=== PATIENT | male | born 1995 | race Caucasian/White ===

== ENCOUNTER 2019-12-25 17:44 | Emergency (ER) | payer SELFPAY ==
[~2019-12-25] VITALS: Ht 185.4 cm; Wt 100.4 kg
--- NOTE | 2019-12-25 18:57 | ED Cough/URI ---
General Chief Complaint: Abdominal/GI Problems Stated Complaint: COUGHING UP BLOOD Nursing Triage Note: Pt ambulatory to ED with c/o coughing up blood x3, just FRAUD EXAMINER to ED. Pt states the blood "looks like alot and really red. Dark red." Pt denies CP, SOB or ABD pain. Pt states it, "just scared me." Sepsis Screen: No Definite Risk History of Present Illness Date Seen by Provider: Dec 25, 2019 Time Seen by Provider: 18:30 Initial Comments Patient reports coughing up about a tablespoon of blood straining with some clots concerned that it is coming from his lungs concerned that related to his smoking and stress has had no fever no chills no chest pain or shortness of breath no previous episodes no other evidence of bruising no recent nosebleeding no recent ingestion of red foods. Timing/Duration: just prior to arrival Severity/Quality: mild Prior Episodes/Possible Cause: no prior episodes Associated Symptoms: other (denies chest pain denies fever denies chills denies previous cough does relate smoking one pack a day) Allergies and Home Medications Allergies Coded Allergies: No Known Drug Allergies (Unverified , 12/25/19) Patient Home Medication List Home Medication List Reviewed: Yes Review of Systems Review of Systems Constitutional: No chills, No dizziness, No fever EENTM: No ear pain, No blurred vision, No double vision, No epistaxis, No nose congestion, No throat pain Respiratory: No cough, No dyspnea on exertion; hemoptysis; No short of breath, No stridor, No wheezing Cardiovascular: No chest pain, No palpitations Gastrointestinal: No abdominal pain, No nausea, No vomiting Genitourinary: No dysuria, No frequency Musculoskeletal: No muscle pain, No muscle stiffness Skin: No lesions, No rash Hematologic/Lymphatic: Denies Easy Bleeding, Denies Easy Bruising Past Ixiixwh-Lgvymz-Nmfmzz Hx Past Med/Social Hx: Reviewed Nursing Past Med/Soc Hx Patient Social History Recent Foreign Travel: No Contact w/Someone Who Travel: No Recent Infectious Disease Expo: No Recent Hopitalizations: No Physical Abuse: No Sexual Abuse: No Mistreated: No Fear: No Seasonal Allergies Seasonal Allergies: No Past Medical History Surgeries: No Respiratory: No Cardiac: No Neurological: No Genitourinary: No Gastrointestinal: No Musculoskeletal: No Endocrine: No HEENT: No Cancer: No Psychosocial: No Integumentary: No Blood Disorders: No Adverse Reaction/Blood Tranf: No Physical Exam Vital Signs - First Documented 12/25/19 18:21 Temp 36.8 Pulse 114 Resp 18 B/P (MAP) 140/71 (94) Pulse Ox 96 O2 Delivery Room Air Capillary Refill : Less Than 3 Seconds Height: '" Weight: lbs. oz. kg; 29.00 BMI Method: General Appearance: WD/WN, no apparent distress Eyes: Bilateral Eye PERRL, Bilateral Eye EOMI HEENT: PERRL/EOMI, normal ENT inspection, TMs normal, pharynx normal Neck: non-tender, full range of motion Respiratory: chest non-tender, lungs clear, rhonchi, wheezing Cardiovascular: regular rate, rhythm, no edema Gastrointestinal: normal bowel sounds, non tender, soft Extremities: normal range of motion, normal inspection Neurologic/Psychiatric: no motor/sensory deficits, alert, normal mood/affect, oriented x 3 Skin: normal color, warm/dry Progress/Results/Core Measures Suspected Sepsis Recent Fever Within 48 Hours: No Infection Criteria Present: None New/Unexplained Altered Menta: No Sepsis Screen: No Definite Risk SIRS Temperature: Pulse: 114 Respiratory Rate: 18 Laboratory Tests 12/25/19 19:12: White Blood Count 11.3H Blood Pressure 140 /71 Mean: 94 Laboratory Tests 12/25/19 19:12: Creatinine 0.82, INR Comment 0.9, Platelet Count 245, Total Bilirubin 0.5 Results/Orders Lab Results Laboratory Tests Test 12/25/19 19:12 Range/Units White Blood Count 11.3 H 4.3-11.0 10^3/uL Red Blood Count 5.12 4.35-5.85 10^6/uL Hemoglobin 15.7 13.3-17.7 G/DL Hematocrit 44 40-54 % Mean Corpuscular Volume 85 80-99 FL Mean Corpuscular Hemoglobin 31 25-34 PG Mean Corpuscular Hemoglobin Concent 36 32-36 G/DL Red Cell Distribution Width 12.3 10.0-14.5 % Platelet Count 245 130-400 10^3/uL Mean Platelet Volume 9.2 7.4-10.4 FL Neutrophils (%) (Auto) 59 42-75 % Lymphocytes (%) (Auto) 27 12-44 % Monocytes (%) (Auto) 10 0-12 % Eosinophils (%) (Auto) 3 0-10 % Basophils (%) (Auto) 0 0-10 % Neutrophils # (Auto) 6.6 1.8-7.8 X 10^3 Lymphocytes # (Auto) 3.1 1.0-4.0 X 10^3 Monocytes # (Auto) 1.2 H 0.0-1.0 X 10^3 Eosinophils # (Auto) 0.3 0.0-0.3 10^3/uL Basophils # (Auto) 0.1 0.0-0.1 10^3/uL Prothrombin Time 12.6 12.2-14.7 SEC INR Comment 0.9 0.8-1.4 Activated Partial Thromboplast Time 28 24-35 SEC Sodium Level 138 135-145 MMOL/L Potassium Level 3.6 3.6-5.0 MMOL/L Chloride Level 102 98-107 MMOL/L Carbon Dioxide Level 22 21-32 MMOL/L Anion Gap 14 5-14 MMOL/L Blood Urea Nitrogen 11 7-18 MG/DL Creatinine 0.82 0.60-1.30 MG/DL Estimat Glomerular Filtration Rate > 60 BUN/Creatinine Ratio 13 Glucose Level 137 H 70-105 MG/DL Calcium Level 9.4 8.5-10.1 MG/DL Corrected Calcium 9.0 8.5-10.1 MG/DL Total Bilirubin 0.5 0.1-1.0 MG/DL Aspartate Amino Transf (AST/SGOT) 24 5-34 U/L Alanine Aminotransferase (ALT/SGPT) 43 0-55 U/L Alkaline Phosphatase 85 40-136 U/L Total Protein 7.1 6.4-8.2 GM/DL Albumin 4.5 3.2-4.5 GM/DL My Orders Orders - DAYANA MENDOZA JR, MD Cbc With Automated Diff (12/25/19 18:45) Comprehensive Metabolic Panel (12/25/19 18:45) Protime With Inr (12/25/19 18:45) Partial Thromboplastin Time (12/25/19 18:45) Chest 1 View Ap/Pa Only (12/25/19 18:45) Ct Chest W (12/25/19 19:50) Iohexol Injection (Omnipaque 350 Mg/Ml 1 (12/25/19 20:00) Received Contrast (Hold Metformin- Contr (12/25/19 20:00) Ns (Ivpb) (Sodium Chloride 0.9% Ivpb Bag (12/25/19 20:00) Medications Given in ED Current Medications Medications Dose Ordered Sig/Cecil Route Start Time Stop Time Status Last Admin Dose Admin Iohexol 100 ml ONCE ONCE IV 12/25/19 20:00 12/25/19 20:01 DC 12/25/19 20:06 75 ML Sodium Chloride 100 ml ONCE ONCE IV 12/25/19 20:00 12/25/19 20:01 DC 12/25/19 20:06 100 ML Vital Signs/I&O 12/25/19 18:21 Temp 36.8 Pulse 114 Resp 18 B/P (MAP) 140/71 (94) Pulse Ox 96 O2 Delivery Room Air Capillary Refill : Less Than 3 Seconds Blood Pressure Mean: 94 Departure Communication (Admissions) Discussed with patient about finding of x-ray and CAT scan at this point feel like this is probably not malignant fungal versus sarcoid as per the radiologist but at this point needs bronchoscopy with biopsy discussed with him and he will call in the morning for primary care follow-up and set up with a bronchoscopy. Return if any problems Impression Primary Impression: Hemoptysis Disposition: HOME, SELF-CARE Condition: Stable Departure-Patient Inst. Referrals: NICOLE MILLS MD Patient Instructions: Coughing up Blood DAYANA MENDOZA JR, MD Dec 25, 2019 18:56
[2019-12-25 19:19] LABS: HEMATOCRIT 44 % (40-54); HEMOGLOBIN 15.7 G/DL (13.3-17.7); LYMPHOCYTES % (AUTO) 27 % (12-44); MEAN CORPUSCULAR HEMOGLOBIN 31 PG (25-34); MEAN CORPUSCULAR HGB CONC 36 G/DL (32-36); MEAN CORPUSCULAR VOLUME 85 FL (80-99); MEAN PLATELET VOLUME 9.2 FL (7.4-10.4); MONOCYTES % (AUTO) 10 % (0-12); NEUTROPHILS % (AUTO) 59 % (42-75); PLATELET COUNT 245 10^3/uL (130-400); RED CELL DISTRIBUTION WIDTH 12.3 % (10.0-14.5); WHITE BLOOD COUNT 11.3 10^3/uL (4.3-11.0)
[2019-12-25 19:20] LABS: BASOPHILS # (AUTO) 0.1 10^3/uL (0.0-0.1); BASOPHILS % (AUTO) 0 % (0-10); EOSINOPHILS # (AUTO) 0.3 10^3/uL (0.0-0.3); EOSINOPHILS % (AUTO) 3 % (0-10); LYMPHOCYTES # (AUTO) 3.1 X 10^3 (1.0-4.0); MONOCYTES # (AUTO) 1.2 X 10^3 (0.0-1.0); NEUTROPHILS # (AUTO) 6.6 X 10^3 (1.8-7.8)
--- NOTE | 2019-12-25 19:33 | Diagnostic Imaging Report ---
INDICATION: Hemoptysis. FINDINGS: The heart size is normal. There is mild soft tissue prominence about the anthony bilaterally, right greater than left. There is no pleural effusion or pneumothorax. IMPRESSION: Questionable soft tissue prominence about the anthony bilaterally, right greater than left. Underlying adenopathy cannot be excluded. Recommend clinical correlation and, if warranted, followup with CT chest. No other acute cardiopulmonary abnormality. Dictated by: Dictated on workstation # [id number]
[2019-12-25 19:36] LABS: INR 0.9 (0.8-1.4); PROTHROMBIN TIME PATIENT 12.6 SEC (12.2-14.7)
[2019-12-25 19:38] LABS: ALANINE AMINOTRANSFERASE 43 U/L (0-55); ALKALINE PHOSPHATASE 85 U/L (40-136); BILIRUBIN,TOTAL 0.5 MG/DL (0.1-1.0); BUN/CREATININE RATIO 13; CALCIUM 9.4 MG/DL (8.5-10.1); CARBON DIOXIDE 22 MMOL/L (21-32); CHLORIDE 102 MMOL/L (98-107); CREATININE SERUM 0.82 MG/DL (0.60-1.30); GFR ESTIMATED > 60; GLUCOSE 137 MG/DL (70-105); POTASSIUM 3.6 MMOL/L (3.6-5.0); SODIUM 138 MMOL/L (135-145); TOTAL PROTEIN 7.1 GM/DL (6.4-8.2)
[2019-12-25 19:39] LABS: ALBUMIN 4.5 GM/DL (3.2-4.5)
[2019-12-25] MEDS ORDERED: IOHEXOL 350 MG/ML 100 ML (OMNIPAQUE 350) VIAL IV ONE (20:00)
[2019-12-25] MEDS ORDERED: NS 100 ML (IVPB) BAG IV ONE (20:00)
[2019-12-25] MEDS ORDERED: HOLD METFORMIN - RECEIVED CONTRAST 20 ML VIAL IV SCH (20:00)
--- NOTE | 2019-12-25 20:51 | Diagnostic Imaging Report ---
PROCEDURE: CT chest with contrast only. TECHNIQUE: Multiple contiguous axial images were obtained through the chest after administration of intravenous contrast. Auto Exposure Controls were utilized during the CT exam to meet ALARA standards for radiation dose reduction. INDICATION: Cough and hemoptysis. FINDINGS: There is bulky mediastinal and hilar adenopathy, right greater than left. Some of this demonstrates some benign type calcification. The largest pretracheal lymph node measures 1.6 cm. The conglomerate of nodes in the right hilum measures approximately 4.4 x 3 cm. There is a 2 cm subcarinal node. There is a 1.5 cm left hilar node. There are also some free aortic lymph nodes. The thoracic aorta is normal in caliber and without evidence of dissection. There is no pleural or pericardial fluid. There is pneumothorax. There is calcified granuloma in the right lower lobe. There is an additional 5 mm nodule along the fissure on the right. There is a more spiculated-appearing density in the right upper lobe measuring approximately 1 cm. The visualized intra-abdominal structures are otherwise unremarkable. The osseous structures are unremarkable. IMPRESSION: 1. Bulky mediastinal and hilar adenopathy, as described. There are some dystrophic calcifications within it suggesting a benign process although neoplasm certainly cannot be excluded. Recommend further evaluation with bronchoscopy and biopsy. 2. A 1 cm spiculated density in the right lung apex, likely inflammatory, although again neoplasm cannot be entirely excluded. Recommend short interval follow-up to ensure stability of approximately 2-3 months. Dictated by: Dictated on workstation # [id number]
[2019-12-25 20:54] VITALS: BP 138/78
--- OUTSIDE RECORDS SUMMARY | 2019-12-25 22:05 | XMS REPORT | Clinical Summary ---
Author Author Admin, Deven GAY Organization [facility] Address Unknown Phone Unavailable Allergies, Adverse Reactions, Alerts Allergy Name Reaction Description Start Date Severity Status Pr ovider No Known Allergies Jazmine Logan Conditions or Problems Problem Name Problem Code Onset Date Status Entry Date Provider Comment Standard Description Annotate WRIST PAIN, RIGHT 719.43 Resolved Lester Ortega MD Pain in joint involving forearm Shoulder pain, right 719.41 Active Lester jones MD Pain in joint involving shoulder region Spells 780.09 Active Lester Ortega MD Other alteration of consciousness ADHD 314.01 Active Lester Ortega MD Attention deficit disorder of childhood with hyperactivity Bipolar disorder 296.80 Active Lester Dumont Bipolar disorder, unspecified WRIST PAIN, RIGHT ICD-719.43 Inactive Lester Ortega MD Medication List Medication Instructions Start Date Stop Date Generic Name NDC Status Provider Patient Instruction LITHIUM CARBONATE ER 450 MG ORAL CR-TABS 1 twice a day LITHIUM CARBONATE 03264316434 Active Lester Ortega MD Active Vital Signs Date Name Value Unit Range Description blood pressure, diastolic - 8462-4 68 mm[Hg] BP mercado blood pressure, systolic - 8480-6 104 mm[Hg] BP sys pulse rate E&M - 8867-4 81 /min H eart rate temperature E&M 98.6 [degF] Body temp erature weight E&M - 3141-9 210.2 [lb_av] Weigh t Measured blood pressure, diastolic - 8462-4 74 mm[Hg] BP mercado blood pressure, systolic - 8480-6 106 mm[Hg] BP sys pulse rate E&M - 8867-4 76 /min H eart rate temperature E&M 98.3 [degF] Body temp erature weight E&M - 3141-9 203 [lb_av] Weigh t Measured blood pressure, diastolic - 8462-4 74 mm[Hg] BP mercado blood pressure, systolic - 8480-6 119 mm[Hg] BP sys pulse rate E&M - 8867-4 66 /min H eart rate temperature E&M 98.5 [degF] Body temp erature weight E&M - 3141-9 201.6 [lb_av] Weigh t Measured blood pressure, diastolic - 8462-4 72 mm[Hg] BP mercado blood pressure, systolic - 8480-6 110 mm[Hg] BP sys height E&M - 8302-2 71.5 [in_us] Bdy h eight pulse rate E&M - 8867-4 58 /min H eart rate temperature E&M 98.0 [degF] Body temp erature weight E&M - 3141-9 198.8 [lb_av] Weigh t Measured Encounters Code Encounter Date Provider Facility CPT-90553 Level 3 Est. Patient 12:51:59 CDT Lester Ortega MD [facility] CPT-37409 Level 3 Est. Patient 14:41:31 CDT Lester Ortega MD [facility] CPT-52357 Level 3 Est. Patient 11:17:43 CDT Lester Ortega MD [facility] CPT-52744 Level 3 Est. Patient 14:20:14 CDT Lester Ortega MD [facility] CPT-75305 Level 3 Est. Patient 10:53:18 CDT Gorge NIEVES [facility] Procedures Code Procedure Name Date Entry Date Standard Desc ription CPT-46771 Wrist comp 3V 15:35:51 CDT
--- OUTSIDE RECORDS SUMMARY | 2019-12-25 22:05 | XMS REPORT ---
Author Author [facility] Medic al StaffCLAIRE Organization [facility] Address [address] [id number] Phone [phone] Care Team Providers Care Baggage Handling Supervisor Name Role Phone JOSE CRUZ KOEHLER MD PP [phone] Summary purpose TRANSITION OF CARE AUTO GENERATION Chief Complaint and Reason for Visit No authorized Reason for Visit (Admitting Diagnosis) is available for this visit . Problem list No authorized problems tracked for continuity of care are available for this vis it. Encounters No authorized problems tracked for encounter diagnoses are available for this vi sit. Medications No medications recorded for this patient visit Allergies, adverse reactions, alerts Allergen Category Ingredient Status Reaction Severity Onset No known drug allergies No known drug allergies No known drug al lergies Confirmed or Verified Immunizations No immunizations recorded for this patient visit Relevant diagnostic tests and/or laboratory data No authorized results are available for this patient visit History of procedures Procedure Code Code Type Description Date Performed Performing Physician 75329 CPT-4 TDAP VACCINE 7 YRS/> IM 04-30-2015 ABIGAIL LORENZANA ELLEN 04186 CPT-4 EMERGENCY DEPT VISIT 04-30-2015 JASBIR ELLEN 95655 CPT-4 EMERGENCY DEPT VISIT 04-30-2015 JASBIR ELLEN 31840 CPT-4 IMMUNIZATION ADMIN 04-30-2015 JASBIR WE NDT Functional status Functional Status Finding Observation Time Abdomen Appearance flat 90-79-821360:30 Abdomen soft 10-68-471466:30 Bowel Sounds present 81-64-278369:30 Pappas no 01-86-561466:30 Urination normal 37-87-385822:30 Quality sym/unlabored :30 Cough absent 42-68-372775:30 Breath Sounds RUL clear 54-36-888484:30 Breath Sounds RML clear 30-60-891134:30 Breath Sounds RLL clear :30 Breath Sounds RISHI clear :30 Breath Sounds LLL clear 68-65-104856:30 Airway natural :30 Chest Tube no :30 Oxygen no :30 Temp >100.4 no : Temp <96.8 no :30 Chills with rigors no :30 HR > 90bpm yes :30 Respirations > 20 no : Systolic <90 no :30 headache stiff neck no :30 Rapid Resp no :43 Nursing Note Pt assessment completed at t his time and Pt was given tdap per dr order at this time Pt was then given home instrucitons at this time and was off of floor in stable conditon :36 Vital signs Type Value Date Respiration Rate 18breaths per minute : 30 Pulse 110beats per minute :3 0 Oxygen Saturation 99% :30 BP Systolic 115mmHg :30 BP Diastolic 60mmHg :30 Temperature 98F :30 Height 73inches :45 Weight 212.6LB :45 Social history Type Value Smoking Status CURRENT EVERY DAY SMOKER Treatment Plan No treatment plan text is available for this visit. Hospital discharge instructions Dismissal Condition good Disposition on DC home DC Inst/Educ Give yes PNE Vac none Flu Vac no Tetanus Vac unknown
--- OUTSIDE RECORDS SUMMARY | 2019-12-25 22:05 | XMS REPORT | Clinical Summary ---
Author Author Admin, Deven GAY Organization [facility] Address Unknown Phone Unavailable Allergies, Adverse Reactions, Alerts Allergy Name Reaction Description Start Date Severity Status Pr ovider No Known Allergies Jazmine Doreen Conditions or Problems Problem Name Problem Code [...] CR-TABS 1 twice a day LITHIUM CARBONATE 50225418626 Active Lester Ortega MD Active Vital Signs [...] - 3141-9 198.8 [lb_av] Weigh t Measured Diagnostic Results Date Name Value Unit Range Description Lab Report: Basic Metabolic Panel, Thyro id Stimulating Hormone (L) - Chemistry sodium, serum 145 mmol/L 604-273 7381/06/15 potassium, serum 4.0 mmol/L 3.5-5.2 chloride, serum 105 mmol/L 98-107 carbon dioxide, venous blood 26.5 mmol/L 21.0-32 .0 blood glucose 118 mg/dL 65-110 calcium, serum 9.3 mg/dL 8.5-10.1 urea nitrogen, blood 12 mg/dL 7-18 creatinine, serum 1.00 mg/dL 0.60-1.30 TSH 3.14 m[iU]/mL 0.36-3.74 Lab Report: CBC - Hematology leukocyte count, blood 10.1 10^3/MM^3 10*3/mm3 4.6-10.2 erythrocyte (RBC) count 5.17 10^6/MM^3 10*6/mm3 4.69-6.1 3 hemoglobin, blood 16.0 g/dL 13.5-17.5 hematocrit, blood 46.2 % 41.0-53.0 mean corpuscular volume, RBC 89 fL 80-97 mean corpuscular hemoglobin, RBC 31.0 pg 27. 0-31.2 mean corpuscular hemoglobin concentration, RBC 34.7 G/DL % 31.8-35.4 red blood cell distribution width 13.9 % 11 .6-14.8 platelet count 225 10^3/MM^3 10*3/mm3 142-424 Lab Report: LITHIUM - Toxicology lithium level, serum 0.7 MMOL/L meq/L 0.5-1.3 Encounters Code Encounter Date Provider Facility CPT-47523 Level 3 Est. Patient 12:51:59 CDT Lester Ortega MD [facility] CPT-12055 Level 3 Est. Patient 14:41:31 CDT Lester Ortega MD [facility] CPT-55576 Level 3 Est. Patient 11:17:43 CDT Lester Ortega MD [facility] CPT-12559 Level 3 Est. Patient 14:20:14 CDT Lester Ortega MD [facility] CPT-50163 Level 3 Est. Patient 10:53:18 CDT Gorge NIEVES [facility] Procedures Code Procedure Name Date Entry Date Standard Desc ription CPT-88850 Wrist comp 3V 15:35:51 CDT
--- OUTSIDE RECORDS SUMMARY | 2019-12-25 22:05 | XMS REPORT | Clinical Summary ---
Author Author Admin, Deven GAY Organization [facility] Address Unknown Phone Allergies, Adverse Reactions, Alerts Allergy Name Reaction [...] Lester Ortega MD Other alteration of consciousness WRIST PAIN, RIGHT ICD-719.43 Inactive Lester Ortega MD Medication List Medication Instructions Start Date Stop Date Generic Name NDC Status Provider Patient Instruction No Drug Therapy Prescribed - none known did ask Jazmine Doreen Vital Signs Date Name Value Unit Range Description blood pressure, diastolic - 8462-4 72 mm[Hg] BP mercado blood pressure, systolic - 8480-6 110 mm[Hg] BP sys height E&M - 8302-2 71.5 [in_us] Bdy h eight pulse rate E&M - 8867-4 58 /min H eart rate temperature E&M 98.0 [degF] Body temp erature weight E&M - 3141-9 198.8 [lb_av] Weigh t Measured blood pressure, diastolic - 8462-4 70 mm[Hg] BP mercado blood pressure, systolic - 8480-6 109 mm[Hg] BP sys height E&M - 8302-2 70 [in_us] Bdy h eight pulse rate E&M - 8867-4 76 /min H eart rate temperature E&M 97.2 [degF] Body temp erature weight E&M - 3141-9 166 [lb_av] Weigh t Measured Encounters Code Encounter Date Provider Facility CPT-51264 Level 3 Est. Patient 14:20:14 CDT Lester Ortega MD [facility] CPT-74106 Level 3 Est. Patient 10:53:18 CDT Gorge NIEVES [facility] Procedures Code Procedure Name Date Entry Date Standard Desc ription CPT-63057 Wrist comp 3V 15:35:51 CDT
--- OUTSIDE RECORDS SUMMARY | 2019-12-25 22:05 | XMS REPORT | Clinical Summary ---
Author Author Admin, Deven GAY Organization [facility] Address Unknown Phone Unavailable Allergies, Adverse Reactions, Alerts Allergy Name Reaction Description Start Date Severity Status Pr ovider No Known Allergies Nader Bhatt Conditions or Problems Problem Name Problem Code [...] CR-TABS 1 twice a day LITHIUM CARBONATE 69208260939 Active Lester Ortega MD Active Vital Signs Date Name Value Unit Range Description blood pressure, diastolic - 8462-4 74 mm[Hg] [...] Measured Encounters Code Encounter Date Provider Facility CPT-09744 Level 3 Est. Patient 14:41:31 CDT Lester Ortega MD [facility] CPT-69091 Level 3 Est. Patient 11:17:43 CDT Lester Ortega MD [facility] CPT-91209 Level 3 Est. Patient 14:20:14 CDT Lester Ortega MD [facility] CPT-57896 Level 3 Est. Patient 10:53:18 CDT Gorge NIEVES [facility] Procedures Code Procedure Name Date Entry Date Standard Desc ription CPT-75536 Wrist comp 3V 15:35:51 CDT
--- OUTSIDE RECORDS SUMMARY | 2019-12-25 22:05 | XMS REPORT | Clinical Summary ---
Author Author Admin, Deven GAY Organization [facility] Address Unknown Phone Unavailable Allergies, Adverse Reactions, [...] CR-TABS 1 twice a day LITHIUM CARBONATE 11438705520 Active Lester Ortega MD Active Vital Signs [...] Measured Encounters Code Encounter Date Provider Facility CPT-73603 Level 3 Est. Patient 12:51:59 CDT Lester Ortega MD [facility] CPT-76708 Level 3 Est. Patient 14:41:31 CDT Lester Ortega MD [facility] CPT-44449 Level 3 Est. Patient 11:17:43 CDT Lester Ortega MD [facility] CPT-42414 Level 3 Est. Patient 14:20:14 CDT Lester Ortega MD [facility] CPT-28745 Level 3 Est. Patient 10:53:18 CDT Gorge NIEVES [facility] Procedures Code Procedure Name Date Entry Date Standard Desc ription CPT-03689 Wrist comp 3V 15:35:51 CDT
--- OUTSIDE RECORDS SUMMARY | 2019-12-25 22:05 | XMS REPORT | Clinical Summary ---
Author Author Admin, Deven GAY Organization [facility] Address Unknown Phone Unavailable Allergies, Adverse [...] CR-TABS 1 twice a day LITHIUM CARBONATE 60242930830 Active Lester Ortega MD Active Vital Signs [...] (L) - Chemistry sodium, serum 145 mmol/L 951-598 9811/06/15 potassium, serum 4.0 mmol/L 3.5-5.2 chloride, serum [...] 0.5-1.3 Encounters Code Encounter Date Provider Facility CPT-55281 Level 3 Est. Patient 12:51:59 CDT Lester Ortega MD [facility] CPT-23426 Level 3 Est. Patient 14:41:31 CDT Lester Ortega MD [facility] CPT-69518 Level 3 Est. Patient 11:17:43 CDT Lester Ortega MD [facility] CPT-67425 Level 3 Est. Patient 14:20:14 CDT Lester Ortega MD [facility] CPT-60926 Level 3 Est. Patient 10:53:18 CDT Gorge NIEVES [facility] Procedures Code Procedure Name Date Entry Date Standard Desc ription CPT-73795 Wrist comp 3V 15:35:51 CDT
--- OUTSIDE RECORDS SUMMARY | 2019-12-25 22:05 | XMS REPORT | Clinical Summary ---
Author Author Admin, Deven GAY Organization [facility] Address Unknown Phone Unavailable Allergies, Adverse Reactions, [...] CR-TABS 1 twice a day LITHIUM CARBONATE 48307660325 Active Lester Ortega MD Active Vital Signs [...] (L) - Chemistry sodium, serum 145 mmol/L 911-130 8761/06/15 potassium, serum 4.0 mmol/L 3.5-5.2 chloride, serum [...] 0.5-1.3 Encounters Code Encounter Date Provider Facility CPT-78578 Level 3 Est. Patient 12:51:59 CDT Lester Ortega MD [facility] CPT-61325 Level 3 Est. Patient 14:41:31 CDT Lester Ortega MD [facility] CPT-39121 Level 3 Est. Patient 11:17:43 CDT Lester Ortega MD [facility] CPT-54926 Level 3 Est. Patient 14:20:14 CDT Lester Ortega MD [facility] CPT-73264 Level 3 Est. Patient 10:53:18 CDT Gorge NIEVES [facility] Procedures Code Procedure Name Date Entry Date Standard Desc ription CPT-67909 Wrist comp 3V 15:35:51 CDT
--- OUTSIDE RECORDS SUMMARY | 2019-12-25 22:05 | XMS REPORT ---
Author Author [facility] Medic al StaffCLAIRE Organization [facility] Address [address] [place] [id number] Phone [phone] Care Team Providers Care Paper Bag Inspector Name Role Phone JOSE CRUZ KOEHLER MD PP [phone] Summary purpose TRANSITION OF CARE AUTO GENERATION [...] for this patient visit History of procedures No procedures recorded for this patient visit. Functional status Functional Status Finding Observation Time Temp >100.4 no :43 Temp <96.8 no :43 Chills with rigors no :43 HR > 90bpm no :43 Respirations > 20 no :43 Systolic <90 no :43 headache stiff neck no :43 Rapid Resp no :43 Nursing Note To ER rm #3 with c/o lacerat ion to L thumb after cuttung it on a knife 2 hours ago. :03 Vital signs Type Value Date Respiration Rate 16breaths per minute : 45 Pulse 114beats per minute :4 5 Oxygen Saturation 97% :45 BP Systolic 117mmHg :45 BP Diastolic 66mmHg 77-28-047361:45 Temperature 99.1F 79-91-775885:45 Height 73inches 94-34-444447:45 Weight 212.6LB 75-04-316059:45 Social history Type Value Smoking Status CURRENT EVERY DAY SMOKER Treatment Plan No treatment plan text is available for this visit. Hospital discharge instructions PNE Vac none Flu Vac no Tetanus Vac unknown
--- OUTSIDE RECORDS SUMMARY | 2019-12-25 22:05 | XMS REPORT | Clinical Summary ---
Author Author Admin, Deven GAY Organization [facility] Address Unknown Phone Unavailable Allergies, Adverse Reactions, Alerts Allergy Name Reaction Description Start Date Severity Status Pr ovider No Known Allergies Nader Bhatt Conditions or Problems Problem Name Problem Code Onset Date Status Entry Date Provider Comment Standard Description Annotate WRIST PAIN, RIGHT 719.43 Resolved Lester Ortega MD Pain in joint involving forearm Shoulder pain, right 719.41 Active Lester joens MD Pain in joint involving shoulder region [...] CR-TABS 1 twice a day LITHIUM CARBONATE 99430902575 Active Lester Ortega MD Active Vital Signs [...] Measured Encounters Code Encounter Date Provider Facility CPT-49488 Level 3 Est. Patient 14:41:31 CDT Lester Ortega MD [facility] CPT-42787 Level 3 Est. Patient 11:17:43 CDT Lester Ortega MD [facility] CPT-85452 Level 3 Est. Patient 14:20:14 CDT Lester Ortega MD [facility] CPT-45934 Level 3 Est. Patient 10:53:18 CDT Gorge NIEVES [facility] Procedures Code Procedure Name Date Entry Date Standard Desc ription CPT-10108 Wrist comp 3V 15:35:51 CDT
--- OUTSIDE RECORDS SUMMARY | 2019-12-25 22:05 | XMS REPORT | Clinical Summary ---
Author Author Admin, Deven GAY Organization [facility] Address Unknown Phone Unavailable Allergies, [...] CR-TABS 1 twice a day LITHIUM CARBONATE 03452288216 Active Lester Ortega MD Active Vital Signs [...] (L) - Chemistry sodium, serum 145 mmol/L 080-631 7240/06/15 potassium, serum 4.0 mmol/L 3.5-5.2 chloride, serum [...] .6-14.8 platelet count 225 10^3/MM^3 10*3/mm3 142-424 Encounters Code Encounter Date Provider Facility CPT-95516 Level 3 Est. Patient 12:51:59 CDT Lester Ortega MD [facility] CPT-65039 Level 3 Est. Patient 14:41:31 CDT Lester Ortega MD [facility] CPT-89764 Level 3 Est. Patient 11:17:43 CDT Lester Ortega MD [facility] CPT-60641 Level 3 Est. Patient 14:20:14 CDT Lester Ortega MD [facility] CPT-32440 Level 3 Est. Patient 10:53:18 CDT Gorge NIEVES [facility] Procedures Code Procedure Name Date Entry Date Standard Desc ription CPT-12873 Wrist comp 3V 15:35:51 CDT
--- OUTSIDE RECORDS SUMMARY | 2019-12-25 22:05 | XMS REPORT ---
Author Author [facility] Medic al StaffCLAIRE Organization [facility] Address [address] [id number] Phone [phone] Care Team Providers Care Warehouse Logistics Manager Name Role Phone JOSE CRUZ KOEHLER MD PP [phone] Summary purpose TRANSITION OF CARE AUTO GENERATION Chief Complaint and Reason for Visit Admit Diagnosis 1 LOWER LEG INJURY NOS Problem list No authorized problems tracked for [...] visit Relevant diagnostic tests and/or laboratory data RESULTS Radiology Results [id number] LOWER LEG XRAY - 2 VIEW PACs Image DATE OF EXAM: Oct 23 2014 RAD 0995-LOWER LEG XRAY-2 EW- LEFT: RADIOLOGY REPORT DATE OF SERVICE: 10/23/14 HISTORY: Patient has left fowler pain. LEFT TIB FIB STUDY 2 VIEWS 2130 HOURS Tibia and fibula are intact. No bony or soft tissue abnormality is seen. IMPRESSION: Negative study. DO Kye Wilcox 10/24/2014 07:52:10/11 09:58:22 cc:Dr. Jose Cruz Koehler This document has been electronically Signed by: On: DATE OF EXAM: Oct 23 2014 RAD 0995-LOWER LEG XRAY-2 EW- LEFT: RADIOLOGY REPORT DATE OF SERVICE: 10/23/14 HISTORY: Patient has left fowler pain. LEFT TIB FIB STUDY 2 VIEWS 2130 HOURS Tibia and fibula are intact. No bony or soft tissue abnormality is seen. IMPRESSION: Negative study. DO Kye Wilcox 10/24/2014 07:52:10/11 09:58:22 cc:Dr. Jose Cruz Koehler This document has been electronically Signed by: DAX ARCHULETA, JASBIR On: Oct 24 2014 12:51P Result Amended on 2014-10-24 at 12:51:41 . Previous status was IN. History of procedures Procedure Code Code Type Description Date Performed Performing Physician 86781 CPT-4 X-RAY EXAM OF LOWER LEG 10-23-2014 ABIGAIL RK ELLEN 73258 CPT-4 TDAP VACCINE >7 IM 10-23-2014 JASBIR WE NDT 41370 CPT-4 IMMUNIZATION ADMIN 10-23-2014 JASBIR WE NDT 40300 CPT-4 EMERGENCY DEPT VISIT 10-23-2014 JASBIR ELLEN 48832 CPT-4 EMERGENCY DEPT VISIT 10-23-2014 JASBIR ELLEN Functional status Functional Status Finding Observation Time Abdomen Appearance flat :30 Abdomen soft :30 Bowel Sounds present :30 Pappas no :30 Urination normal :30 Quality sym/unlabored :30 Cough absent :30 Breath Sounds RUL clear :30 Breath Sounds RML clear :30 Breath Sounds RLL clear :30 Breath Sounds RISHI clear :30 Breath Sounds LLL clear :30 Airway natural :30 Chest Tube no :30 Oxygen no :40 Temp >100.4 no : Temp <96.8 no :30 Chills with rigors no :30 HR > 90bpm yes :30 Respirations > 20 no :30 Systolic <90 no :30 headache stiff neck no :30 Nursing Note Patient wound cleaned and wr apped with bryce bandage. Patient given dc instructions. He ambluated from unit in stable condition. :40 Vital signs Type Value Date Respiration Rate 16breaths per minute : 40 Pulse 85beats per minute :40 Oxygen Saturation 98% :40 BP Systolic 108mmHg :40 BP Diastolic 71mmHg :40 Temperature 98.0F :40 Height 72inches :05 Weight 210LB :05 Social history Type Value Smoking Status CURRENT EVERY DAY SMOKER Treatment Plan No treatment plan text is available for this visit. Hospital discharge instructions Dismissal Condition good Disposition on DC home DC Inst/Educ Give yes Med/Side Effects Rev yes PNE Vac none Flu Vac no Tetanus Vac unknown
--- OUTSIDE RECORDS SUMMARY | 2019-12-25 22:05 | XMS REPORT | Clinical Summary ---
Author Author Admin, Deven GAY Organization [facility] Address Unknown Phone Unavailable Allergies, Adverse [...] CR-TABS 1 twice a day LITHIUM CARBONATE 38800226675 Active Lester Ortega MD Active Vital Signs [...] (L) - Chemistry sodium, serum 145 mmol/L 145-985 4736/06/15 potassium, serum 4.0 mmol/L 3.5-5.2 chloride, serum [...] 142-424 Encounters Code Encounter Date Provider Facility CPT-52784 Level 3 Est. Patient 12:51:59 CDT Lester Ortega MD [facility] CPT-22219 Level 3 Est. Patient 14:41:31 CDT Lester Ortega MD [facility] CPT-56465 Level 3 Est. Patient 11:17:43 CDT Lester Ortega MD [facility] CPT-78619 Level 3 Est. Patient 14:20:14 CDT Lester Ortega MD [facility] CPT-15826 Level 3 Est. Patient 10:53:18 CDT Gorge NIEVES [facility] Procedures Code Procedure Name Date Entry Date Standard Desc ription CPT-57541 Wrist comp 3V 15:35:51 CDT
--- OUTSIDE RECORDS SUMMARY | 2019-12-25 22:05 | XMS REPORT | Clinical Summary ---
Author Author Admin, Deven GAY Organization [facility] Address Unknown Phone Unavailable Allergies, Adverse [...] CR-TABS 1 twice a day LITHIUM CARBONATE 94413394893 Active Lester Ortega MD Active Vital Signs [...] (L) - Chemistry sodium, serum 145 mmol/L 836-693 8608/06/15 potassium, serum 4.0 mmol/L 3.5-5.2 chloride, serum [...] 0.5-1.3 Encounters Code Encounter Date Provider Facility CPT-37756 Level 3 Est. Patient 12:51:59 CDT Lester Ortega MD [facility] CPT-00790 Level 3 Est. Patient 14:41:31 CDT Lester Ortega MD [facility] CPT-98909 Level 3 Est. Patient 11:17:43 CDT Lester Ortega MD [facility] CPT-38621 Level 3 Est. Patient 14:20:14 CDT Lester Ortega MD [facility] CPT-32688 Level 3 Est. Patient 10:53:18 CDT Gorge NIEVES [facility] Procedures Code Procedure Name Date Entry Date Standard Desc ription CPT-41359 Wrist comp 3V 15:35:51 CDT
--- OUTSIDE RECORDS SUMMARY | 2019-12-25 22:05 | XMS REPORT ---
Author Author [facility] Medic al StaffCLAIRE Organization [facility] Address [address] [id number] Phone [phone] Care Team Providers Care Processing Associate Name Role Phone JOSE CRUZ KOEHLER MD PP [phone] Summary purpose TRANSITION OF CARE AUTO GENERATION [...] :30 Oxygen no :40 Temp >100.4 no :30 Temp <96.8 no :30 Chills with rigors no :30 HR > 90bpm yes : Respirations > 20 no : Systolic <90 no : headache stiff neck no : Nursing Note Patient wound cleaned and wr apped with bryce bandage. Patient given dc instructions. He ambluated from unit in stable condition. :40 Vital signs Type Value Date Respiration Rate 16breaths per minute : Pulse 85beats per minute :40 Oxygen Saturation [...]
--- OUTSIDE RECORDS SUMMARY | 2019-12-25 22:05 | XMS REPORT ---
Author Author [facility] Medic al StaffCLAIRE Organization [facility] Address [address] [place] [place] [id number] Phone [phone] Care Team Providers Care Hardwood Floor Installer Name Role Phone JOSE CRUZ KOEHLER MD PP [phone] Summary purpose TRANSITION OF CARE AUTO GENERATION [...] Status Finding Observation Time Abdomen Appearance flat :15 Abdomen non-tender :15 Bowel Sounds present :15 Pappas no :15 Urination normal :15 Quality sym/unlabored :15 Cough absent :15 Secretions no :15 Airway natural :15 Chest Tube no :15 Oxygen no :18 Temp >100.4 no :15 Temp <96.8 no :15 Chills with rigors no :15 HR > 90bpm yes :15 Respirations > 20 no :15 Systolic <90 no :15 headache stiff neck no :15 Rapid Resp no :15 IV Site Location no iv access :15 Nursing Note pt dc'd to home at this time in good condition. pt exited ambulatory with all known belongings. sig other at side. 's note for work in hand. :18 Vital signs Type Value Date Respiration Rate 18breaths per minute : Pulse 101beats per minute :1 8 Oxygen Saturation 95% :18 BP Systolic 119mmHg :18 BP Diastolic 63mmHg :18 Temperature 100.1F :18 Weight 210LB :55 Social history Type Value Smoking Status CURRENT EVERY DAY SMOKER Treatment Plan No treatment plan text is available for this visit. Hospital discharge instructions Dismissal Condition good Disposition on DC home DC Inst/Educ Give yes PNE Vac none Flu Vac no Tetanus Vac 2014
--- OUTSIDE RECORDS SUMMARY | 2019-12-25 22:05 | XMS REPORT | Clinical Summary ---
Author Author Admin, Deven GAY Organization [facility] Address Unknown Phone Unavailable Allergies, Adverse [...] CR-TABS 1 twice a day LITHIUM CARBONATE 91184972813 Active Lester Ortega MD Active Vital Signs [...] Measured Encounters Code Encounter Date Provider Facility CPT-94210 Level 3 Est. Patient 14:41:31 CDT Lester Ortega MD [facility] CPT-93948 Level 3 Est. Patient 11:17:43 CDT Lester Ortega MD [facility] CPT-63779 Level 3 Est. Patient 14:20:14 CDT Lester Ortega MD [facility] CPT-30620 Level 3 Est. Patient 10:53:18 CDT Gorge NIEVES [facility] Procedures Code Procedure Name Date Entry Date Standard Desc ription CPT-86073 Wrist comp 3V 15:35:51 CDT
--- OUTSIDE RECORDS SUMMARY | 2019-12-25 22:06 | XMS REPORT | Clinical Summary ---
Author Author Admin, Deven GAY Organization [facility] Address Unknown Phone Allergies, Adverse Reactions, Alerts Allergy Name Reaction Description Start Date Severity Status Pr ovider Allergies Unknown Conditions or Problems Problem Name Problem Code [...] Generic Name NDC Status Provider Patient Instruction Drug Treatment Unknown - unknown Vital Signs Date Name Value Unit Range Description blood pressure, diastolic - 8462-4 70 mm[Hg] BP mercado blood pressure, systolic - 8480-6 109 mm[Hg] BP sys height E&M - 8302-2 70 [in_us] Bdy h eight pulse rate E&M - 8867-4 76 /min H eart rate temperature E&M 97.2 [degF] Body temp erature weight E&M - 3141-9 166 [lb_av] Weigh t Measured Encounters Code Encounter Date Provider Facility CPT-12419 Level 3 Est. Patient 14:20:14 CDT Lester Ortega MD [facility] CPT-83118 Level 3 Est. Patient 10:53:18 CDT Gorge NIEVES [facility] Procedures Code Procedure Name Date Entry Date Standard Desc ription CPT-25593 Wrist comp 3V 15:35:51 CDT
--- OUTSIDE RECORDS SUMMARY | 2019-12-25 22:06 | XMS REPORT | Clinical Summary ---
Author Author Admin, Deven GAY Organization [facility] Address Unknown Phone Unavailable Allergies, Adverse Reactions, [...] NDC Status Provider Patient Instruction LITHIUM CARBONATE 300 MG ORAL TABS 1 three times a day LITHIUM CARBONATE 76760950145 Active Lester Ortega MD Active Vital Signs [...] Measured Encounters Code Encounter Date Provider Facility CPT-99672 Level 3 Est. Patient 11:17:43 CDT Lester Ortega MD [facility] CPT-66930 Level 3 Est. Patient 14:20:14 CDT Lester Ortega MD [facility] CPT-43889 Level 3 Est. Patient 10:53:18 CDT Gorge NIEVES [facility] Procedures Code Procedure Name Date Entry Date Standard Desc ription CPT-19464 Wrist comp 3V 15:35:51 CDT
--- OUTSIDE RECORDS SUMMARY | 2019-12-25 22:06 | XMS REPORT | Clinical Summary ---
Author Author Admin, Deven GAY Organization [facility] Address Unknown Phone Unavailable Allergies, Adverse [...] 1 three times a day LITHIUM CARBONATE 21449303393 Active Lester Ortega MD Active Vital Signs [...] Measured Encounters Code Encounter Date Provider Facility CPT-84385 Level 3 Est. Patient 11:17:43 CDT Lester Ortega MD [facility] CPT-55201 Level 3 Est. Patient 14:20:14 CDT Lester Ortega MD [facility] CPT-41531 Level 3 Est. Patient 10:53:18 CDT Gorge NIEVES [facility] Procedures Code Procedure Name Date Entry Date Standard Desc ription CPT-27304 Wrist comp 3V 15:35:51 CDT
--- OUTSIDE RECORDS SUMMARY | 2019-12-25 22:06 | XMS REPORT | Clinical Summary ---
Author Author Admin, Deven GAY Organization [facility] Address Unknown Phone Unavailable Allergies, [...] Prescribed - none known did ask Jazmine Guthrieson Vital Signs Date Name Value Unit Range [...] Measured Encounters Code Encounter Date Provider Facility CPT-77883 Level 3 Est. Patient 14:20:14 CDT Lester Ortega MD [facility] CPT-88020 Level 3 Est. Patient 10:53:18 CDT Gorge noel [facility] Procedures Code Procedure Name Date Entry Date Standard Desc ription CPT-51427 Wrist comp 3V 15:35:51 CDT
--- OUTSIDE RECORDS SUMMARY | 2019-12-25 22:06 | XMS REPORT | Clinical Summary ---
Author Author Admin, Deven GAY Organization [facility] Address Unknown Phone Allergies, Adverse Reactions, Alerts Allergy Name Reaction Description Start Date Severity Status Pr ovider Allergies Unknown Conditions or Problems Problem Name Problem Code Onset Date Status Entry Date Provider Comment Standard Description Annotate WRIST PAIN, RIGHT 719.43 Active Rahel Bhatt Pain in joint involving forearm Medication List Medication Instructions Start Date Stop [...] Measured Encounters Code Encounter Date Provider Facility CPT-77969 Level 3 Est. Patient 10:53:18 CDT Gorge NIEVES [facility] Procedures Code Procedure Name Date Entry Date Standard Desc ription CPT-09988 Wrist comp 3V 15:35:51 CDT
== END 2019-12-25 20:56 | disposition home or self-care (01) ==
LOC: ER FS 17:46
DX: R04.2 Hemoptysis (principal)
CPT/HCPCS: 36415; 71045; 71260; 80053; 85025; 85610; 85730

== ENCOUNTER → 2019-12-27 | Outpatient (CLI) | payer SELFPAY | LOC: LAB FS 10:02 | PROVIDERS: ATTEND Nurse Practitioner Family | DX: R04.2 Hemoptysis (principal); R91.8 Other nonspecific abnormal finding of lung field; R59.1 Generalized enlarged lymph nodes; F17.210 Nicotine dependence, cigarettes, uncomplicated | CPT/HCPCS: 36415; 82164; 82330; 85652; 86021; 86038; 86039; 86256; 86480 ==

== ENCOUNTER → 2020-01-01 | Outpatient (CLI) | payer SELFPAY | LOC: LAB FS 11:22 | PROVIDERS: ATTEND Nurse Practitioner Family | DX: F17.210 Nicotine dependence, cigarettes, uncomplicated (principal); R59.1 Generalized enlarged lymph nodes; R91.8 Other nonspecific abnormal finding of lung field; R04.2 Hemoptysis | CPT/HCPCS: 36415; 86663; 86664; 86665; 87015; 87070; 87116; 87205; 87206 ==

== ENCOUNTER → 2020-01-02 | Outpatient (CLI) | payer SELFPAY ==
[~2020-01-02] MED LIST: RT-ALBUTEROL SULF 2.5 MG/3 ML PRE-MIX VIAL INH ONE
== END ==
LOC: RT 09:43
PROVIDERS: ATTEND Nurse Practitioner Family
DX: F17.210 Nicotine dependence, cigarettes, uncomplicated (principal); R59.1 Generalized enlarged lymph nodes; R91.8 Other nonspecific abnormal finding of lung field; R04.2 Hemoptysis
CPT/HCPCS: 94060; 94726; 94729

== ENCOUNTER 2020-01-07 05:29 | Outpatient (RCR) | payer SELFPAY ==
[~2020-01-07] VITALS: Ht 185 cm; Wt 99.0 kg
== END 2020-01-07 10:13 | disposition home or self-care (01) ==
LOC: PREOP 05:29
PROVIDERS: ATTEND Internal Medicine Critical Care Medicine
DX: Z01.818 Encounter for other preprocedural examination (principal)

== ENCOUNTER → 2020-01-07 | Outpatient (CLI) | payer SELFPAY | LOC: LAB FS 10:30 | PROVIDERS: ATTEND Internal Medicine Critical Care Medicine | DX: Z01.812 Encounter for preprocedural laboratory examination (principal); Z20.828 Contact with and (suspected) exposure to other viral communicable diseases | CPT/HCPCS: 87635 ==

== ENCOUNTER → 2020-01-07 | Outpatient (CLI) | payer SELFPAY | LOC: LABNPT 06:40 | PROVIDERS: ATTEND Internal Medicine Critical Care Medicine | DX: Z01.812 Encounter for preprocedural laboratory examination (principal); Z53.9 Procedure and treatment not carried out, unspecified reason ==

== ENCOUNTER 2020-01-09 06:44 | Day surgery (SDC) | payer SELFPAY ==
[2020-01-09] VITALS (10 sets, daily range): BP systolic 103–122; BP diastolic 55–78
[~2020-01-09] VITALS: Ht 185 cm; Wt 99.0 kg
[2020-01-09] MEDS ORDERED: LIDOCAINE JELLY 2% 6 ML SYRINGE TOP ONE (06:45)
[2020-01-09] MEDS ORDERED: LIDOCAINE PF 2% 5 ML (XYLOCAINE) VIAL INJ ONE (06:45)
[2020-01-09] MEDS ORDERED: LIDOCAINE PF 1% 2 ML VIAL IJ ONE (06:45)
[2020-01-09] MEDS ORDERED: proPOfol 200 MG/20 ML (DIPRIVAN) VIAL IV ONE ×2 (06:54→07:22)
[2020-01-09] MEDS ORDERED: fentaNYL INJECTION 100 MCG/2 ML AMP ONE (06:54)
[2020-01-09] MEDS ORDERED: LIDOCAINE PF 2% 5 ML (XYLOCAINE) VIAL ONE (06:55)
[2020-01-09] MEDS ORDERED: ONDANSETRON 4 MG/2 ML (SDV) Z0FRAN ONE (06:55)
[2020-01-09] MEDS ORDERED: MIDAZOLAM 2 MG/2 ML (VERSED) VIAL ONE (06:55)
[2020-01-09] MEDS ORDERED: SEVOFLURANE (ULTANE) 15 ML INHAL SOLN ONE (06:56)
[2020-01-09] MEDS ORDERED: ROCURONIUM 10 MG/ML 5 ML SYRINGE IV ONE (07:02)
[2020-01-09] MEDS ORDERED: LACTATED RINGERS 1,000 ML IV ONE (07:10)
[2020-01-09] MEDS ORDERED: LACTATED RINGERS 1,000 ML IV PRN (07:15)
[2020-01-09] MEDS ORDERED: GLYCOPYRROLATE 0.2 MG/ML (ROBINUL) 2 ML VIAL ONE (08:30)
[2020-01-09] MEDS ORDERED: NEOSTIGMINE 3 MG/3 ML VIAL ONE (08:30)
--- NOTE | 2020-01-09 08:36 | Progress Note-Pre Operative ---
Pre-Operative Progress Note H&P Reviewed The H&P was reviewed, patient examined and no changes noted. Time Seen by Provider: 07:50 Date H&P Reviewed: Jan 09, 2020 Time H&P Reviewed: 07:50 Pre-Operative Diagnosis: hemoptysis, JORGE LOPEZ DO Jan 09, 2020 08:36
--- NOTE | 2020-01-09 08:38 | Pulmonary Procedures ---
Pulmonary Procedures Date of Procedure Date of Service: Jan 09, 2020 Bronch Bronchoscopy with bilateral wash, RML, and RUL BAL. EBUS with bx of station 7 lymph nodes Preop DX: mediastinal lymphadenopathy PostOP DX: same with inflammation of RUL. No signs of active hemoptysis. Complications: None Pt was sedated per anesthesia. Bronchoscopy was advanced through the ET tube and an anatomical undertaken down to the segmental bronchi bilaterally. No endobronchial lesions noted. Bronchoscopy with bilateral wash, RML, and RUL BAL. EBUS with bx of station 7 lymph nodes were sampled via needle bx under US guidance. Pt tolerated procedure well. No complications noted. JORGE GARDNER DO Jan 09, 2020 08:38
--- NOTE | 2020-01-09 09:26 | Diagnostic Imaging Report ---
EXAMINATION: Portable erect AP chest at 9:16 AM. INDICATION: Post bronchoscopy. FINDINGS: The heart size is within normal limits and stable when compared to 12/25/2019. As noted on the prior exam and as seen on the CT chest exam of 12/25/2019, there is bulky mediastinal and hilar adenopathy. Furthermore, in the interval since the previous study, alveolar/interstitial infiltrates have developed in the right upper lobe and right lower lobe. The left lung remains generally clear. Reportedly, the patient underwent bronchoscopy earlier today. There is no sign of a pneumothorax. The mediastinum is not widened. The osseous structures are intact. IMPRESSION: There is no evidence for a pneumothorax following bronchoscopy; however, the appearance of the chest has worsened as alveolar/interstitial infiltrates have developed in the right lung. These are most likely due to pneumonia/atelectasis. A followup exam would be recommended for continued evaluation. Dictated by: Dictated on workstation # [id number]
--- NOTE | 2020-01-09 10:05 | Anesthesia-General Post-Op ---
General Patient Condition Mental Status/LOC: Same as Preop Cardiovascular: Satisfactory Nausea/Vomiting: Absent Respiratory: Satisfactory Pain: Controlled Complications: Absent Post Op Complications Complications None Follow Up Care/Instructions Patient Instructions None needed. Anesthesia/Patient Condition Patient Condition Patient is doing well, no complaints, stable vital signs, no apparent adverse anesthesia problems. No complications reported per nursing. MILA MOE CRNA Jan 09, 2020 10:05
== END 2020-01-09 10:30 | disposition home or self-care (01) ==
LOC: ENDO 06:44
PROVIDERS: ATTEND Internal Medicine Critical Care Medicine
DX: R59.0 Localized enlarged lymph nodes (principal); R04.2 Hemoptysis; R06.09 Other forms of dyspnea; F17.210 Nicotine dependence, cigarettes, uncomplicated
CPT/HCPCS: 36415; 71045; 86769; 87015; 87070; 87101; 87116; 87205; 87206; 94640

== ENCOUNTER → 2020-02-08 | Outpatient (CLI) | payer SELFPAY ==
[~2020-02-08] MED LIST changes: +CATHETER FLUSH 10 ML SYR IV PRN; +HOLD METFORMIN - RECEIVED CONTRAST 20 ML VIAL IV SCH; +IOHEXOL 350 MG/ML 100 ML (OMNIPAQUE 350) VIAL IV ONE; +NS 100 ML (IVPB) BAG IV ONE; -RT-ALBUTEROL SULF 2.5 MG/3 ML PRE-MIX VIAL INH ONE
[2020-02-08 10:22] LABS: BASOPHILS % (AUTO) 1 % (0-10); EOSINOPHILS % (AUTO) 2 % (0-10); HEMATOCRIT 45 % (40-54); HEMOGLOBIN 15.9 G/DL (13.3-17.7); LYMPHOCYTES # (AUTO) 2.4 X 10^3 (1.0-4.0); LYMPHOCYTES % (AUTO) 24 % (12-44); MEAN CORPUSCULAR HEMOGLOBIN 31 PG (25-34); MEAN CORPUSCULAR HGB CONC 36 G/DL (32-36); MEAN CORPUSCULAR VOLUME 86 FL (80-99); MEAN PLATELET VOLUME 9.4 FL (7.4-10.4); MONOCYTES % (AUTO) 10 % (0-12); NEUTROPHILS # (AUTO) 6.1 X 10^3 (1.8-7.8); NEUTROPHILS % (AUTO) 63 % (42-75); PLATELET COUNT 257 10^3/uL (130-400); RED CELL DISTRIBUTION WIDTH 12.6 % (10.0-14.5); WHITE BLOOD COUNT 9.7 10^3/uL (4.3-11.0)
[2020-02-08 10:23] LABS: BASOPHILS # (AUTO) 0.1 10^3/uL (0.0-0.1); EOSINOPHILS # (AUTO) 0.2 10^3/uL (0.0-0.3)
--- NOTE | 2020-02-08 10:27 | Diagnostic Imaging Report ---
PROCEDURE: CT chest, abdomen, and pelvis with contrast. TECHNIQUE: Multiple contiguous axial images were obtained through the chest, abdomen, and pelvis after the administration of intravenous contrast. Auto Exposure Controls were utilized during the CT exam to meet ALARA standards for radiation dose reduction. INDICATION: Lymphadenopathy. Studies performed for follow-up. COMPARISON: Comparison is made with CT chest from 12/25/2019. FINDINGS: CT chest: No axillary lymphadenopathy is identified. Right paratracheal lymph node is stable at 16 mm. Subcarinal soft tissue fullness is stable. Bilateral hilar lymphadenopathy is again noted. Marker lymph node in the left hilum is stable at 15 mm. The conglomerate of lymph nodes with calcifications in the right hilum stable at 4.3 x 2.9 cm compared with 4.5 x 2.9 cm. Residual thymic tissue in the anterior mediastinum is noted. No pericardial or pleural fluid is detected. A slightly irregular density in the posterior right upper lobe adjacent to the fissure is stable at 1 cm. Fissural nodule on the right is stable. No new parenchymal abnormality is seen. Bony structures are nonacute. IMPRESSION: Stable CT chest since exam one month earlier. Mediastinal and bilateral hilar lymphadenopathy is unchanged. Again, there are several calcifications within the lymphadenopathy and this could be secondary to a granulomatous process such as sarcoidosis. Neoplastic or lymphomatous process again cannot be entirely excluded. The pulmonary parenchymal findings are stable when compared with prior exam. CT abdomen and pelvis: No discrete liver mass is detected. The gallbladder is unremarkable. There is no biliary ductal dilatation. Pancreas and spleen are unremarkable. No adrenal mass is detected. Kidneys are unremarkable. Aorta is nonaneurysmal. No central, retroperitoneal, or mesenteric lymphadenopathy is identified. The small and large bowel loops are normal caliber. Appendix is unremarkable. No free fluid or fluid collection is detected. The bladder is decompressed. Prostate is unremarkable. No pelvic lymphadenopathy is detected. Bony structures are unremarkable. IMPRESSION: Unremarkable CT of the abdomen and pelvis. No abdominal or pelvic lymphadenopathy or evidence of metastatic disease is detected. Dictated by: Dictated on workstation # [id number]
== END ==
LOC: RAD FS 08:21
PROVIDERS: ATTEND Internal Medicine Critical Care Medicine
DX: F17.210 Nicotine dependence, cigarettes, uncomplicated (principal); R59.1 Generalized enlarged lymph nodes; R91.8 Other nonspecific abnormal finding of lung field; R04.2 Hemoptysis; R06.00 Dyspnea, unspecified
CPT/HCPCS: 36415; 71260; 74177; 85025